=== PATIENT | female | born 1950 | race Caucasian/White ===

== ENCOUNTER 2017-06-01 09:27 | Outpatient (CLI) | payer MEDICARE | END 2017-06-01 09:28 | disposition home or self-care (01) | LOC: BICMAMMO 09:27 | PROVIDERS: ATTEND Internal Medicine | DX: Z78.0 Asymptomatic menopausal state (principal) | CPT/HCPCS: 77080 ==

== ENCOUNTER 2017-11-09 10:35 | Outpatient (CLI) | payer MEDICARE | END 2017-11-09 10:36 | disposition home or self-care (01) | LOC: BICMAMMO 10:35 | PROVIDERS: ATTEND Internal Medicine | DX: Z12.31 Encounter for screening mammogram for malignant neoplasm of breast (principal); Z80.3 Family history of malignant neoplasm of breast | CPT/HCPCS: 77063; 77067 ==

== ENCOUNTER 2018-03-04 19:44 | Emergency (ER) | payer MEDICARE ==
--- NOTE | 2018-03-04 20:18 | RAD ---
THREE VIEWS OF THE RIGHT HAND: 03/03/18 HISTORY: Tripped and fell. Pain in right hand. 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 Postsurgical changes are seen at the leve l of the first carpometacarpal joint. There is lucency seen within the distal pole of the scaphoid javier ne which may represent a subchondral cystic changes. There is no acute fracture or dislocation seen i nvolving the right hand. IMPRESSION: 1. No acute osseous abnormality. POS: [facility]
--- NOTE | 2018-03-04 20:30 | RAD ---
THREE VIEWS RIGHT WRIST: 03/04/18 HISTORY: Tripped and fell. Right hand pain. FINDINGS: Postsurgical changes are seen involving the lateral aspect of the wrist at the level of the first car pometacarpal joint with metallic cristela overlying the first carpometacarpal joint and evidence of fu ashley. Lucency is present within the distal pole of the scaphoid bone probably related to subchondral cystic changes. No acute fracture or dislocation is visualized. IMPRESSION: 1. No acute osseous abnormality. If there is clinical concern for fracture of the navicular bone , followup imaging of the wrist in 4 to 7 days is recommended to exclude a radiographically occult fr acture. 2. Postsurgical changes lateral right wrist. POS: [facility]
== END 2018-03-04 20:30 | disposition home or self-care (01) ==
LOC: SCSER 19:44
DX: M25.531 Pain in right wrist (principal); E11.9 Type 2 diabetes mellitus without complications; E03.9 Hypothyroidism, unspecified; E78.5 Hyperlipidemia, unspecified; M06.9 Rheumatoid arthritis, unspecified; G43.909 Migraine, unspecified, not intractable, without status migrainosus; Z79.899 Other long term (current) drug therapy; Z79.84 Long term (current) use of oral hypoglycemic drugs; W01.0XXA Fall on same level from slipping, tripping and stumbling without subsequent striking against object, initial encounter

== ENCOUNTER 2018-11-16 10:25 | Outpatient (CLI) | payer MEDICARE ==
--- NOTE | 2018-11-16 11:10 | MMO ---
Bilateral MAMMO Bilat Screen [facility]. CLINICAL HISTORY: Patient is 68 years old and is seen for screening. The patient has the following family history of breast cancer: maternal grandmother and paternal aunt. The patient has no personal history of cancer. The patient has a history of left Excisional Biopsy in February, - benign. VIEWS: The views performed were: bilateral craniocaudal with tomosynthesis and bilateral mediolateral oblique with tomosynthesis. FILMS COMPARED: The present examination has been compared to prior imaging studies performed at [facility] on 06/03/2014, 06/06/2015, 09/07/2016 and 11/09/2017. MAMMOGRAM FINDINGS: There are scattered fibroglandular densities. There are no suspicious masses, suspicious calcifications, or new areas of architectural distortion. IMPRESSION: THERE IS NO MAMMOGRAPHIC EVIDENCE OF MALIGNANCY. A ROUTINE FOLLOW-UP MAMMOGRAM IN 1 YEAR IS RECOMMENDED. THE RESULTS OF THIS EXAM WERE SENT TO THE PATIENT. ACR BI-RADS Category 1 - Negative MAMMOGRAPHY NOTE: 1. A negative mammogram report should not delay a biopsy if a dominant of clinically suspicious mass is present. 2. Approximately 10% to 15% of breast cancers are not detected by mammography. 3. Adenosis and dense breasts may obscure an underlying neoplasm. Reported by: CONNIE MERAZ MD Electonically Signed: [id number]
== END 2018-11-16 10:26 | disposition home or self-care (01) ==
LOC: BICMAMMO 10:25
PROVIDERS: ATTEND Internal Medicine
DX: Z12.31 Encounter for screening mammogram for malignant neoplasm of breast (principal); Z80.3 Family history of malignant neoplasm of breast; Z91.89 Other specified personal risk factors, not elsewhere classified
CPT/HCPCS: 77063; 77067

== ENCOUNTER 2021-03-24 11:02 | Outpatient (CLI) | payer MEDICARE | END 2021-03-24 11:03 | disposition home or self-care (01) | LOC: BICMAMMO 11:02 | PROVIDERS: ATTEND Nurse Practitioner Adult Health | DX: Z12.31 Encounter for screening mammogram for malignant neoplasm of breast (principal); Z80.3 Family history of malignant neoplasm of breast; Z91.89 Other specified personal risk factors, not elsewhere classified | CPT/HCPCS: 77063; 77067 ==

== ENCOUNTER 2022-06-01 10:56 | Outpatient (CLI) | payer MEDICARE | END 2022-06-01 10:57 | disposition home or self-care (01) | LOC: BICMAMMO 10:56 | PROVIDERS: ATTEND Family Medicine | DX: Z12.31 Encounter for screening mammogram for malignant neoplasm of breast (principal); Z91.89 Other specified personal risk factors, not elsewhere classified; Z98.890 Other specified postprocedural states; Z80.3 Family history of malignant neoplasm of breast | CPT/HCPCS: 77063; 77067 ==

== ENCOUNTER 2022-06-08 13:42 | Outpatient (CLI) | payer MEDICARE | END 2022-06-08 13:43 | disposition home or self-care (01) | LOC: BICMAMMO 13:42 | PROVIDERS: ATTEND Family Medicine | DX: Z13.820 Encounter for screening for osteoporosis (principal); Z78.0 Asymptomatic menopausal state | CPT/HCPCS: 77080 ==

== ENCOUNTER 2023-06-21 13:51 | Outpatient (CLI) | payer MEDICARE | END 2023-06-21 13:52 | disposition home or self-care (01) | LOC: BICMAMMO 13:51 | PROVIDERS: ATTEND Family Medicine | DX: Z12.31 Encounter for screening mammogram for malignant neoplasm of breast (principal); Z80.3 Family history of malignant neoplasm of breast; Z91.89 Other specified personal risk factors, not elsewhere classified | CPT/HCPCS: 77063; 77067 ==